=== PATIENT | female | born 1965 | race Caucasian/White ===

== ENCOUNTER 2017-05-10 14:31 | Emergency (ER) | payer BC ==
[~2017-05-10] VITALS: Ht 162.6 cm; Wt 75.0 kg
[~2017-05-10 14:31] MED LIST: ALPRAZOLAM0.25 MG PO; BUSPIRONE HCL5 MG PO; CYMBALTA 20MG20 MG PO; DIPHENHYDRAMINE25 M1 PO; DUO-KAPS1 CAP PO; LISINOPRIL5 MG PO; OXYCODONE5 MG PO; SYNTHROID0.1 MG PO; TIZANIDINE2 MG PO; VIBRAMYCIN100 MG PO
[2017-05-10] MEDS ORDERED: TIZANIDINE HYDRO4 M1 PO (16:39)
[2017-05-10] MEDS ORDERED: VALACYCLOVIR500 MG (16:39)
[2017-05-10] MEDS ORDERED: ATORVASTATIN CA10 MG PO (16:39)
[2017-05-10] MEDS ORDERED: BUSPIRONE HCL7.5 MG PO (16:40)
[2017-05-10] MEDS ORDERED: BENTYL 20MG20 MG/TAB PO (16:40)
[2017-05-10] MEDS ORDERED: CYMBALTA60 M1 PO (16:40)
[2017-05-10] MEDS ORDERED: VOLTAREN 75 DR75 MG PO (16:40)
[2017-05-10] MEDS ORDERED: HYDROCHLOROTHIA1 T15 PO (16:41)
[2017-05-10] MEDS ORDERED: VIBRAMYCIN HYC100 MG PO (17:28)
[2017-05-10] MEDS ORDERED: TRAMADOL 50 MG TAB PO (17:28)
[2017-05-10 17:54] VITALS: BP 162/101
== END 2017-05-10 18:07 | disposition home or self-care (01) ==
LOC: ED 14:31
DX: S16.1XXA Strain of muscle, fascia and tendon at neck level, initial encounter (principal); M47.812 Spondylosis without myelopathy or radiculopathy, cervical region; L30.9 Dermatitis, unspecified; Y04.0XXA Assault by unarmed brawl or fight, initial encounter; Y92.828 Other wilderness area as the place of occurrence of the external cause

== ENCOUNTER → 2019-12-13 | Outpatient (CLI) | payer BC ==
[~2019-12-13] MED LIST changes: +ATORVASTATIN CA10 MG PO; +BENTYL 20MG20 MG/TAB PO; +BUSPIRONE HCL7.5 MG PO; +CYMBALTA60 M1 PO; +HYDROCHLOROTHIA1 T15 PO; +TIZANIDINE HYDRO4 M1 PO; +TRAMADOL 50 MG TAB PO; +VALACYCLOVIR500 MG; +VIBRAMYCIN HYC100 MG PO; +VOLTAREN 75 DR75 MG PO
== END ==
LOC: RAD 10:35
DX: M25.562 Pain in left knee (principal)

== ENCOUNTER 2020-11-05 13:44 | Outpatient (RCR) | payer BC | END 2021-02-03 | disposition home or self-care (01) | LOC: PT | DX: M54.2 Cervicalgia (principal); R20.0 Anesthesia of skin; R20.2 Paresthesia of skin ==

== ENCOUNTER → 2022-01-23 | Outpatient (CLI) | payer BC | LOC: RAD 15:08 | DX: M47.817 Spondylosis without myelopathy or radiculopathy, lumbosacral region (principal); M51.26 Other intervertebral disc displacement, lumbar region; M48.07 Spinal stenosis, lumbosacral region; Z98.1 Arthrodesis status ==

== ENCOUNTER 2022-06-27 20:46 | Emergency (ER) | payer BC ==
[2022-06-27 21:37] LABS: BASO # 0.04 K/mm3 (0.02-0.10); EOS % 2.4 % (1.0-5.0); HEMATOCRIT 35.7 % (37.0-47.0); HEMOGLOBIN 12.2 g/dL (12.5-16.0); LYMPH# 4.19 K/mm3 (1.50-4.00); MEAN CELL VOLUME 94 fl (78-100); MEAN CORPUSCULAR HEMOGLOBIN 32 pg (27-31); MEAN CORPUSCULAR HGB CONC 34 g/dL (33-37); MONO # 0.58 K/mm3 (0.20-0.80); NEU # 3.44 K/mm3 (1.40-6.50); PLATELET COUNT 344 K/mm3 (130-400); RED BLOOD COUNT 3.81 M/mm3 (4.10-5.30); RED CELL DISTRIBUTION WIDTH 12.5 % (11.5-14.5); WHITE BLOOD COUNT 8.5 K/mm3 (4.8-10.8)
[2022-06-27 21:39] LABS: POTASSIUM 3.1 mmol/L (3.5-5.1)
[2022-06-27 21:41] LABS: CALCIUM 8.9 mg/dL (8.3-10.5)
[2022-06-27 21:42] LABS: TOTAL PROTEIN 6.2 g/dL (6.4-8.3)
[2022-06-27 21:44] LABS: TOTAL BILIRUBIN 0.2 mg/dL (0.2-1.2)
[2022-06-27 21:59] LABS: PROTHROMBIN TIME 9.8 SECONDS (9.0-12.0)
[2022-06-28 00:27] VITALS: BP 129/78
== END 2022-06-28 01:07 | disposition short-term general hospital (02) ==
LOC: ED 20:46
PROVIDERS: Nurse Practitioner Family
DX: S52.572A Other intraarticular fracture of lower end of left radius, initial encounter for closed fracture (principal); S92.335A Nondisplaced fracture of third metatarsal bone, left foot, initial encounter for closed fracture; S92.415A Nondisplaced fracture of proximal phalanx of left great toe, initial encounter for closed fracture; S09.93XA Unspecified injury of face, initial encounter; Z28.310 Unvaccinated for COVID-19; V80.010A Animal-rider injured by fall from or being thrown from horse in noncollision accident, initial encounter
CPT/HCPCS: J1170; J2405; J7030

== ENCOUNTER → 2023-11-19 | Outpatient (CLI) | payer BC | LOC: RAD 18:00 | DX: M51.17 Intervertebral disc disorders with radiculopathy, lumbosacral region (principal); M43.17 Spondylolisthesis, lumbosacral region; M48.07 Spinal stenosis, lumbosacral region | CPT/HCPCS: A9575 ==